=== PATIENT | male | born 1975 | race Caucasian/White ===

== ENCOUNTER 2019-04-02 23:56 | Emergency (ER) | payer SELFPAY ==
[~2019-04-02] VITALS: Ht 162.6 cm; Wt 68.0 kg
[2019-04-03] MEDS ORDERED: MORPHINE SULFATE 2 MG/ML SYR 1ML IV STA (00:07)
[2019-04-03] MEDS ORDERED: ONDANSETRON HCL INJ 2MG/ML 2ML 2 MG/ML VIAL IV STA (00:07)
[2019-04-03] MEDS ORDERED: ONDANSETRON HCL INJ 2MG/ML 2ML 2 MG/ML VIAL ONE (00:18)
[2019-04-03] MEDS ORDERED: MORPHINE SULFATE INJ 4 MG/ML INJ 1ML ONE (00:19)
--- NOTE | 2019-04-03 01:18 | Diagnostic Imaging Report ---
EXAM: CT Abdomen and Pelvis WITHOUT contrast INDICATION: Abdominal pain, nausea and diarrhea for 4 days. COMPARISON: None. TECHNIQUE: Abdomen and pelvis were scanned utilizing a multidetector helical scanner from the lung base to the pubic symphysis without administration of IV contrast. Absence of intravenous contrast decreases sensitivity for detection of focal lesions and vascular pathology. Coronal and sagittal reformations were obtained. Routine protocol was performed. IV CONTRAST: None. ORAL CONTRAST: Water RADIATION DOSE: Total DLP: 622.33 mGy*cm Estimated effective dose: (DLP x 0.015 x size factor) mSv COMPLICATIONS: None FINDINGS: LINES and TUBES: None. LOWER THORAX: Unremarkable HEPATOBILIARY: No focal hepatic lesions. No biliary ductal dilation. GALLBLADDER: No radio-opaque stones or sludge. No wall thickening. SPLEEN: No splenomegaly. PANCREAS: No focal masses or ductal dilatation. ADRENALS: No adrenal nodules KIDNEYS/URETERS: No hydronephrosis. No cystic or solid mass lesions. No stones. GI TRACT: There is diffuse wall thickening of the colon, associated with surrounding fat stranding and trace fluid, consistent with a pancolitis. No bowel dilatation to suggest obstruction. The appendix is unremarkable. PELVIC ORGANS/BLADDER: Unremarkable. LYMPH NODES: Mildly prominent mesenteric lymph nodes. No retroperitoneal lymphadenopathy. VESSELS: Unremarkable. PERITONEUM / RETROPERITONEUM: No free air or fluid. 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 SOFT TISSUES: Bilateral small fat-containing inguinal hernias. IMPRESSION: 1. Pancolitis, with differential diagnosis including infectious and inflammatory etiology (particularly ulcerative colitis) in the proper clinical setting. Signed by: Dr. Dominique Farmer M.D. on 04/03/2019 1:15 AM
== END 2019-04-03 01:40 | disposition home or self-care (01) ==
LOC: FSED 23:56
DX: R10.32 Left lower quadrant pain (principal); R11.0 Nausea; R19.7 Diarrhea, unspecified
CPT/HCPCS: 74176; 80053; 80076; 81003; 85025; 96374; 96376; 99283; J2270; J2405

== ENCOUNTER 2019-07-02 01:45 | Emergency (ER) | payer SELFPAY ==
[~2019-07-02] VITALS: Ht 162.6 cm; Wt 70.3 kg
--- OUTSIDE RECORDS SUMMARY | 2019-07-02 01:50 | XMS REPORT ---
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 Allergies, Adverse Reactions, Alerts This patient has no known allergies or adverse reactions. Medications This patient has no known medications. Encounters Start Date/Time End Date/Time [facility] ID 2019-04-02 23:56:00 2019-04-03 01:40:00 Departed Emergency Room 1 JARAD HAIDER [facility] [id number] Results Test Description Test Time Test Comments Text Results Atomic Results Result Comments CT ABD/PEL WO CONTRAST-HOPD 2019-04-03 01:09:00 [facility] [address] [place] [id number] Patient Name: BUD SARAVIA MR #: [id number] : 1975 Age/Sex: 43/M Req #: [id number] Adm Physician: Ordered by: JARAD HAIDER MD Report #: [id number] Location: [facility] Room/Bed: Procedure: [id number] HOPD/CT ABD/PEL WO CONTRAST-HOPD Exam Date: 04/03/19 Exam Time: 0026 REPORT STATUS: Signed EXAM: CT Abdomen and Pelvis WITHOUT contrast INDICATION: Abdominal pain, nausea and diarrhea for 4 days. COMPARISON: None. TECHNIQUE: Abdomen and pelvis were scanned utilizing a multidetector helical scanner from the lung base to the pubic symphysis without administration of IV contrast. Absence of intravenous contrast decreases sensitivity for detection of focal lesions and vascular pathology. Coronal and sagittal reformations were obtained. Routine protocol was performed. IV CONTRAST: None. ORAL CONTRAST: Water RADIATION DOSE: Total DLP: 622.33 mGy*cm Estimated effective dose: (DLP x 0.015 x size factor) mSv COMPLICATIONS: None FINDINGS: LINES and TUBES: None. LOWER THORAX: Unremarkable HEPATOBILIARY: No focal hepatic lesions. No biliary ductal dilation. GALLBLADDER: No radio-opaque stones or sludge. No wall thickening. SPLEEN: No splenomegaly. PANCREAS: No focal masses or ductal dilatation. ADRENALS: No adrenal nodules KIDNEYS/URETERS: No hydronephrosis. No cystic or solid mass lesions. No stones. GI TRACT: There is diffuse wall thickening of the colon, associated with surrounding fat stranding and trace fluid, consistent with a pancolitis. No bowel dilatation to suggest obstruction. The appendix is unremarkable. PELVIC ORGANS/BLADDER: Unremarkable. LYMPH NODES: Mildly prominent mesenteric lymph nodes. No retroperitoneal lymphadenopathy. VESSELS: Unremarkable. PERITONEUM / RETROPERITONEUM: No free air or fluid. 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 SOFT TISSUES: Bilateral small fat-containing inguinal hernias. IMPRESSION: 1. Pancolitis, with differential diagnosis including infectious and inflammatory etiology (particularly ulcerative colitis) in the proper clinical setting. Signed by: Dr. Dominique Arceo M.D. on 04/03/2019 1:15 AM Dictated By: AUDREY ARCEO MD, MD 4 Transcribed By: TANYA on 04/03/19114 COPY TO: JARAD HAIDER MD
[2019-07-02] MEDS ORDERED: KETOROLAC TROMETHAMINE 60 MG/2 ML VIAL IM ONE (02:00)
--- NOTE | 2019-07-02 03:20 | NUR ---
Patient states he does not need to urinate at this time.
--- NOTE | 2019-07-02 03:47 | Diagnostic Imaging Report ---
EXAM: Scrotal Ultrasound with Duplex INDICATION: Pain and swelling COMPARISON: Abdominal CT 04/03/2019 TECHNIQUE: Transverse and longitudinal images were obtained of the scrotum with grayscale imaging, color Doppler and spectral waveform analysis. FINDINGS: Right testis: Size: 4.1 x 3.1 x 2.5 cm, larger than left testicle. Echogenicity: Normal Mass/Cysts: None Left testis: Size: 2.7 x 2.4 x 2.2 cm, normal in size. Echogenicity: Normal Mass/Cysts: None Epididymis: Appearance: Normal in size without increased vascularity. Mass/Cysts: Tiny left epididymal spermatocele. Extratesticular: Masses: None Hydrocele: Moderate right and small left Varicocele: Right-sided Doppler: Normal arterial flow to both testes and symmetrical flow on color Doppler evaluation is seen. No evidence of testicular torsion. IMPRESSION: 1. No evidence of testicular torsion. 2. Mildly enlarged right testicle relative to the left, could be due to orchitis. 3. Moderate right and small left hydroceles. 3. Right varicocele. Signed by: Azam Grier DO on 07/02/2019 3:44 AM
[2019-07-02 03:54] LABS: CLARITY,URINE CLEAR (CLEAR); COLOR,URINE YELLOW (YELLOW); KETONES,URINE TRACE (NEGATIVE); LEUKOCYTE ESTERASE ,URINE NEGATIVE (NEGATIVE); NITRITE,URINE NEGATIVE (NEGATIVE); PROTEIN,URINE DIPSTICK 1+ (NEGATIVE); URINE UROBILINOGEN 1 mg/dL (0.2 - 1)
[2019-07-02 03:55] LABS: BILIRUBIN,URINE MODERATE (NEGATIVE)
[2019-07-02 04:04] VITALS: BP 119/80
[2019-07-02 04:06] LABS: BACTERIA,URINE FEW /HPF; EPITHELIAL CELLS,URINE RARE /LPF; MUCUS,URINE MODERATE (RARE); RBC,URINE 21-50 /HPF (0-5); WBC,URINE (MAN) 0-5 /HPF (0-5)
== END 2019-07-02 04:11 | disposition home or self-care (01) ==
LOC: ER 01:45
DX: N50.811 Right testicular pain (principal); N43.3 Hydrocele, unspecified
CPT/HCPCS: 76870; 81001; 93976; 99283; J1885

== ENCOUNTER 2022-08-17 20:37 | Emergency (ER) | payer SELFPAY ==
[~2022-08-17] VITALS: Ht 162.6 cm; Wt 74.8 kg
[2022-08-17 21:04] VITALS: O2SAT 98
[2022-08-17] MEDS ORDERED: KETOROLAC TROMETHAMINE 30 MG/ML VIAL IV STA (21:41)
[2022-08-17] MEDS ORDERED: SODIUM CHLORIDE 0.9% 100 ML ONE (21:56)
[2022-08-17] MEDS ORDERED: PIPERACILLIN/TAZOBACTAM 3.375 GM VIAL ONE (21:56)
[2022-08-17] MEDS ORDERED: KETOROLAC TROMETHAMINE 30 MG/ML VIAL ONE (21:56)
[2022-08-17] MEDS ORDERED: DOXYCYCLINE HY100 MG PO (22:00)
[2022-08-17] MEDS ORDERED: CLEOCIN HCL300 MG PO (22:01)
== END 2022-08-17 22:48 | disposition home or self-care (01) ==
LOC: FSED 20:56
DX: L02.211 Cutaneous abscess of abdominal wall (principal); F17.210 Nicotine dependence, cigarettes, uncomplicated
CPT/HCPCS: 10060; 80053; 85025; 99283; J1885; J2543; J7050